=== PATIENT | male | born 2000 | race Caucasian/White ===

== ENCOUNTER 2024-07-25 19:16 | Emergency (ER) | payer OTHER, SELFPAY ==
[2024-07-25 19:48] VITALS: BP 137/85; PULSE 89; RESP 18; TEMP 37.4; O2SAT 99; BMI 47.3
--- NOTE | 2024-07-25 19:55 | XR_ITS ---
Examination: Lumbar spine 3 views TECHNIQUE: AP lateral, lateral and lower lumbar spine 3 views Date and time: July 25, 2024 2103 hours INDICATIONS: Lifting injury to lower back 2 weeks ago, lower back pain. FINDINGS: Adequate alignment lumbar vertebral bodies Mild disc narrowing L5-S1 No lumbar fracture IMPRESSION: Mild disc narrowing L5-S1 If symptoms persist, consider elective MRI lumbar spine without contrast follow-up
--- NOTE | 2024-07-25 19:55 | XR_ITS ---
Examination: Thoracic spine 3 views TECHNIQUE: AP lateral, lateral upper dorsal spine 3 views Date and time: July 25, 2024 2103 hours INDICATIONS: Lifting injury beginning 2 weeks ago to the back, back pain. FINDINGS: Adequate alignment of thoracic vertebral bodies on the lateral view Study is limited secondary to the patient's size No thoracic fracture No significant arthritic change IMPRESSION: No thoracic fracture or significant arthritic change
--- NOTE | 2024-07-25 20:16 | EDNOTE_ITS ---
ED Back Injury Pain RME/HPI General Chief Complaint: Back Pain/Injury Stated Complaint: GEN. BACK AFTER PICKING A PERSON UP AT WORK Time Seen by Provider: 07/25/24 19:49 Source: patient Arrival date/time: 07/25/24 19:16 This is a case of 24 year old male came in [facility] and lower back pain for 2 weeks. Patient states he injury his lower back at work denies numbness weakness tingling sensation no numbness weakness no tingling sensation no incontinence to urine or stool Limitations: no limitations Related Data Previous Rx's ?Medication ?Instructions ?Recorded cyclobenzaprine 10 mg tablet 10 mg PO TID PRN muscle s pasm #10 07/25/24 tabs ibuprofen 800 mg tablet 800 mg PO Q8H PRN pain #20 t abs 07/25/24 Allergies Allergy/AdvReac Type Severity Reaction Status Date / Time No Known Allergies Allergy Verified 07/25/24 19:19 Review of Systems Review of Systems Systems Reviewed: All systems reviewed, normal except as documented Constitutional Constitutional: Reports system reviewed and no additional complaints, except as documented, Reports as per HPI, Denies chills and Denies fever(s) ENT Ears, Nose, Mouth, and Throat: Denies disequilibrium and Denies dizziness Cardiovascular Cardiovascular: Reports system reviewed and no additional complaints, except as documented, Reports as per HPI, Denies chest pain and Denies dyspnea Respiratory Respiratory: Reports system reviewed and no additional complaints, except as documented, Reports as per HPI, Denies chest congestion, Denies cough and Denies dyspnea Gastrointestinal Gastrointestinal: Reports system reviewed and no additional complaints, except as documented, Reports as per HPI and Denies abdominal pain Genitourinary Genitourinary: Reports system reviewed and no additional complaints, except as documented, Reports as per HPI and Denies dysuria Musculoskeletal Musculoskeletal: Reports system reviewed and no additional complaints, except as documented, Reports as per HPI, Denies abnormal gait, Reports back pain and Denies numbness Neurologic Neurologic: Reports system reviewed and no additional complaints, except as documented, Reports as per HPI, Denies abnormal gait, Denies abnormal movements, Denies abnormal speech, Denies disequilibrium, Denies dizziness, Denies localized weakness, Denies lack of coordination, Denies numbness, Denies paresthesias and Denies radicular pain Past Medical History Social History SMOKING STATUS: Current every day smoker ED Exam General Limitations: Present no limitations General appearance: Present alert and in no apparent distress; Absent appears intoxicated, anxious or lethargic Head Head exam: Present atraumatic, normocephalic and normal inspection Eye Eye exam: Present normal appearance, PERRL and EOMI ENT ENT exam: Present normal exam, normal oropharynx and mucous membranes moist Neck Neck exam: Present normal inspection, full ROM and trachea midline Chest Chest inspection: Present normal inspection and symmetric chest wall rise; Absent tenderness Respiratory Respiratory exam: Present normal lung sounds bilaterally; Absent respiratory distress, wheezes, stridor, accessory muscle use or prolonged expiratory phase Cardiovascular Cardiovascular exam: Present regular rate, normal rhythm and normal heart sounds; Absent systolic murmur or diastolic murmur Abdominal Exam Abdominal exam: Present soft and normal bowel sounds; Absent tenderness, guarding, rebound, rigidity, diminished bowel sounds, hyperactive bowel sounds, psoas sign or obturator sign Extremities Exam Extremities exam: Present normal inspection, full ROM and normal capillary refill; Absent tenderness Back Exam Back exam: Present normal inspection, full ROM, tenderness and other (mild tenderness thoracic and lumbar area no crepitation motor 5/5 sensory +2 reflex +2 all extremities); Absent CVA tenderness (R), CVA tenderness (L), muscle spasm, paraspinal tenderness, vertebral tenderness, rashes, sciatic notch tenderness (R), sciatic notch tenderness (L), straight leg raise (R) or straight leg raise (L) Neurological Exam Neurological exam: Present alert, oriented X3, CN II-XII intact, normal gait and reflexes normal; Absent motor sensory deficit Psychiatric Psychiatric exam: Present normal affect and normal mood Skin Skin exam: Present warm, dry, intact and normal color Course Quality Measures none Orders Category Date Time Status XR lumbar spine 2-3V Stat Exams 07/25/24 19:55 Completed XR thoracic spine 3V Stat Exams 07/25/24 19:55 Completed Vital Signs Vital signs: Vital Signs Temperature 99.3 F 07/25/24 19:48 Pulse Rate 89 07/25/24 19:48 Respiratory Rate 18 07/25/24 19:48 Blood Pressure 137/85 H 07/25/24 19:48 Pulse Oximetry (%) 99 07/25/24 19:48 Oxygen Delivery Method Room Air 07/25/24 19:48 Back Pain / Injury MDM Narrative MDM Narrative:: This is a case of 24 year old male came in [facility] and lower back pain for 2 weeks. Patient states he injury his lower back at work denies numbness weakness tingling sensation no numbness weakness no tingling sensation no incontinence to urine or stool Physicial exam showed normal vital signs patient is not tacycardic not tacypneic blood pressure stable afebrile not hypoxic noted mild tenderness thoracc and lumbar area no crepitation no redness no swelling no paraspinal nor vertebral tenderness straight leg exam negative steady gait no cva tenderness no s/sx of cauda equina test showed no fx no subluxation ddd lumbar based on my physical exam patient symtoms suggestive of ddd lumbar strain thoracic and lumbar treatement motrin and flexeril patient was disharged with comforatble conditionwith stable condition and pain fee. Walking stable Patient verbalized no further complain with the proposed management plan including the need to follow up with his/her primary care physician and and any specialist fif applicable. Discussed patient for any urgent condition or worsening sx He she needed to go to Emergency room of call 911 Patient is acknowledge the responsibility to follow up as instructed and to monitor his/her symptoms For any persistnce of the symtoms for more than 3-5 days retrun precaution advised Discussed the result of thetest and was given printed dsicahrge instruction Patient data External records reviewed:: [facility] previous records Clinical information provided by:: patient Social determinants that could affect healthcare access:: none Patient has the following chronic illnesses:: none How is presenting disease/condition affected by chronic disease/condition?: no chronic disease Evaluation data The following diagnostics were reviewed and interpreted by me:: radiology exam(s) Lab and/or radiology exams considered but not ordered:: reviewed Interpretation Summary: normal Medications / Prescriptions Medications or Prescriptions considered but not ordered:: given Medication administrations:: given Consultations Consultation(s) initiated? (list below): No Diagnosis Differential diagnosis back pain/injury: sciatica and thoracic back pain Most likely diagnosis given after review of the tests above:: thoracic strain ad lumbar strain Admission Indicated Admission indicated?: not indicated Explain why admission is indicated or not indicated:: not indicated Admission Request Was there a request for admission?: No Admission Attestation Admission request attestation: not indicated Disposition Plan Disposition Plan: Discharge Discharge Attestation Discharge Attestation: The patient and all family members were given an opportunity to ask questions and understood the discharge instructions. Discharge instructions specifically effects, indications for sooner follow up or return to the emergency department, and the expected course of current diagnosis. Patient condition: Stable Discharge Plan Plan Patient Disposition: HOME (Self Care) Patient condition on transfer: Stable Prescriptions/Referrals Prescriptions/Med Rec: New ibuprofen 800 mg tablet 800 mg PO Q8H PRN (Reason: pain) Qty: 20 0RF cyclobenzaprine 10 mg tablet 10 mg PO TID PRN (Reason: muscle spasm) Qty: 10 0RF Referrals: No Primary/Family,Physician [Referring Provider] - In 1 week Beck Cristobal MD [Physician] - In 1 week (for ddd lumbar possible mri) Problem List Clinical Impression: Strain of thoracic back region, Lumbar strain, DDD (degenerative disc disease), lumbar Patient/Caregiver Discharge Instructions Education Materials: ED Back Sprain/Strain, ED Degenerative Disk Disease Additional Instructions: no lifting pulling pushing more than 5 pounds Print Language: Lithuanian Stand Alone Forms: Natalia Award Info., Work/School Release, Patient Portal Info Letter PA/AIR CONTROL/[employer] Supervising Physician PA/AIR CONTR[employer] OFFICER Supervising Physician: dr escalera
== END 2024-07-25 22:57 | disposition home or self-care (01) ==
PROVIDERS: Emergency Provider Emergency Medicine; PCP Nurse Practitioner Family
DX: S29.012A Strain of muscle and tendon of back wall of thorax, initial encounter (principal); S39.012A Strain of muscle, fascia and tendon of lower back, initial encounter; M51.369 Other intervertebral disc degeneration, lumbar region without mention of lumbar back pain or lower extremity pain; X58.XXXA Exposure to other specified factors, initial encounter; Y99.0 Civilian activity done for income or pay
CPT/HCPCS: 72072; 72100; 99283

== ENCOUNTER 2024-12-28 18:15 | Emergency (ER) | payer MEDICAID, SELFPAY ==
[2024-12-28 18:15] VITALS: BMI 43.0
[2024-12-28 19:09] VITALS: BP 129/83; PULSE 99; RESP 22; TEMP 38.3; O2SAT 97
--- NOTE | 2024-12-28 19:17 | PD.EDRME ---
Rapid Medical Screening Exam [facility] Arrival date/time: 12/28/24 18:15 24M with no significant PMH presents to ED with 1 day of severe IQBAL and light sensitivity. Patient is getting over some illness. Patient has no history of migraines. Patient also has neck pain/stiffness. Chief Complaint: Headache Vital signs: Vital Signs Temperature 101 F H 12/28/24 19:09 Pulse Rate 99 12/28/24 19:09 Respiratory Rate 22 H 12/28/24 19:09 Blood Pressure 129/83 12/28/24 19:09 Pulse Oximetry (%) 97 12/28/24 19:09 Oxygen Delivery Method Room Air 12/28/24 19:09 Exam: Neck stiffness and somewhat reduced ROM. Clinical Impression: URI vs meningitis vs migraine
[2024-12-28 19:50] LABS: Lactate (Lactic Acid) 1.7 mMol/L (0.4-2.0)
[2024-12-28 19:59] LABS: Sed Rate (ESR) 27 mm/hr (0-15)
[2024-12-28 20:00] VITALS: TEMP 38.3
[2024-12-28] MEDS: ACETAMINOPHEN 500 MG TABLET 1000 MG PO (20:00)
[2024-12-28] MEDS: METOCLOPRAMIDE 5 MG TABLET 10 MG PO (20:00)
[2024-12-28 20:01] LABS: Basophils # (Auto) 0.1 Thou/mm3 (0.0-0.2); Basophils % (Auto) 0 % (0-2.5); Eosinophils # (Auto) 0.1 Thou/mm3 (0.0-0.5); Eosinophils % (Auto) 1 % (0-10); Hematocrit 40.5 % (41.0-53.0); Hemoglobin 12.4 g/dL (13.5-16.0); Immature Granulocytes Auto 0.11 Thou/mm3 (0.00-0.00); Lymphocytes # (Auto) 2.5 Thou/mm3 (1.0-4.8); Lymphocytes % (Auto) 20 % (10-50); Mean Corpuscular HGB Conc 30.6 g/dl (31.0-37.0); Mean Corpuscular Hemoglobin 18.8 pg (25.0-35.0); Mean Corpuscular Volume 61 fL (80-100); Monocytes # (Auto) 0.9 Thou/mm3 (0.0-0.8); Monocytes % (Auto) 7 % (0-12); Neutrophils # (Auto) 8.9 Thou/mm3 (1.8-7.7); Neutrophils % (Auto) 71 % (37-80); Nucleated Red Blood Cell # 0.00 Thou/mm3 (0.00-0.00); Nucleated Red Blood Cell % 0 /100 WBC (0); Platelet Count 381 Thou/mm3 (140-440); RDW Standard Deviation 34.9 fL (35.1-43.9); Red Blood Count 6.60 Miln/mm3 (4.50-5.90); White Blood Count 12.4 Thou/mm3 (3.8-10.6)
[2024-12-28] MEDS: SUMAtriptan INJ 6 MG/0.5 ML VIAL SC (20:02)
[2024-12-28 20:19] LABS: Alanine Aminotransferase 39 U/L (10-49); Albumin, Serum 4.7 gm/dL (3.5-5.0); Albumin/Globulin Ratio 1.9 (1.2-2.2); Alkaline Phosphatase 85 U/L (46-116); Anion Gap 11 (7-16); Aspartate Amino Transferase 30 U/L (0-34); BUN/Creatinine Ratio 12 Ratio (12-20); Bilirubin,Total 0.2 mg/dL (0.3-1.2); Blood Urea Nitrogen 11 mg/dL (9-23); C-Reactive Protein 0.8 mg/dL (0.0-0.9); Calcium 9.1 mg/dL (8.3-10.6); Calcium (Corrected) 9.1 mg/dL (8.5-10.1); Carbon Dioxide 26.7 mMol/L (20.0-31.0); Chloride 103 mMol/L (98-107); Creatinine (Component) 0.9 mg/dL (0.6-1.3); Estimated Creatinine Clearance 178.9 mL/min (>60); Globulin 2.5 gm/dL (2.3-3.5); Glucose 106 mg/dL (74-106); Osmolality,Calculated 280 (275-295); Potassium 4.1 mMol/L (3.4-5.1); Procalcitonin 0.09 ng/ml (0.0-0.49); Sodium 141 mMol/L (136-145); Total Protein 7.2 gm/dL (5.7-8.2); eGFR > 60 See Note
[2024-12-28 20:21] LABS: Influenza A Ag Negative; Influenza B Ag Negative; Strep A Rapid Negative (Negative)
[2024-12-28 22:36] VITALS: BP 119/72; PULSE 99; RESP 20; TEMP 38.2; O2SAT 96
--- NOTE | 2024-12-28 23:13 | PD.EDHA ---
ED Headache RME/HPI General Chief Complaint: Headache Stated Complaint: migraine Arrival date/time: 12/28/24 18:15 RME / HPI RME / HPI Narrative: 12/28/24 18:15 24M with no significant PMH presents to ED with 1 day of severe IQBAL and light sensitivity. Patient is getting over some illness. Patient has no history of migraines. Patient also has neck pain/stiffness. --------- Dr. Walter?s Main ED Evaluation: 24yo male with no significant past medical history presents to the ED for a chief complaint of a headache x 1 day. Patient states his headache is diffuse and radiates down to his neck. Patient reports associated photophobia. Patient notes he's been sick with a sore throat, cough, and runny nose for the last 3 weeks. Patient denies any other associated symptoms. Denies any history of similar symptoms. NKA. Related Data Previous Rx's ?Medication ?Instructions ?Recorded cyclobenzaprine 10 mg tablet 10 mg PO TID PRN muscle spasm #10 07/25/24 tabs ibuprofen 800 mg tablet 800 mg PO Q8H PRN pain #20 tabs 07/25/24 Allergies Allergy/AdvReac Type Severity Reaction Status Date / Time No Known Allergies Allergy Verified 07/25/24 19:19 Review of Systems Review of Systems Systems Reviewed: All systems reviewed, normal except as documented Past Medical History Social History SMOKING STATUS: Current some day smoker ED Exam Narrative Physical exam: Generally patient is alert obese in mild distress secondary to headache pain, head is normocephalic atraumatic, eyes pupils equal round react to light, oropharynx is moist and clear, neck shows no obvious nuchal rigidity, neurologic exam [place] Coma Scale 15, abdomen is obese soft nontender Course Quality Measures none Orders Category Date Time Status Bedside COVID-19 Antigen Test NOW Care 12/28/24 19:16 Active Blood Culture (Lab) Stat Lab 12/28/24 19:38 Received CBC Stat Lab 12/28/24 19:38 Completed CMP [Comprehensive Metabolic Panel] Stat Lab 12/28/24 19:38 Completed CRP [C-Reactive Protein] Stat Lab 12/28/24 19:38 Completed ESR [Sed Rate (ESR)] Stat Lab 12/28/24 19:38 Completed Influenza A & B Rapid Panel Stat Lab 12/28/24 19:31 Completed Lactate (Lactic Acid) Stat Lab 12/28/24 19:38 Completed Path Review Blood Smear Stat Lab 12/28/24 19:38 Completed Procalcitonin Stat Lab 12/28/24 19:38 Completed Strep A Rapid Stat Lab 12/28/24 19:31 Completed 1,000 mg IM w/Lido* 1% Med 12/29/24 01:07 Ordered cefTRIAXone [Rocephin] 1,000 mg Lidocaine 1% 20 ml [Xylocaine 1% 20 ML] 2.1 ml IM X1 Acetaminophen Tab [Tylenol ES Tab] Med 12/28/24 19:16 Discontinued 1,000 mg PO X1 ONE Lidocaine 1% 20 ml [Xylocaine 1% 20 ML] Med 12/29/24 00:51 Discontinued 20 ml .ROUTE .STK-MED ONE Lidocaine 1% 20 ml [Xylocaine 1% 20 ML] Med 12/28/24 23:28 Discontinued 20 ml INFL X1 ONE Metoclopramide [Reglan] Med 12/28/24 19:16 Discontinued 10 mg PO X1 ONE SUMAtriptan INJ [Imitrex Inj] Med 12/28/24 19:16 Discontinued 6 mg SC X1 ONE Vital Signs Vital signs: Vital Signs Temperature 101 F H 12/28/24 19:09 Pulse Rate 99 12/28/24 19:09 Respiratory Rate 22 H 12/28/24 19:09 Blood Pressure 129/83 12/28/24 19:09 Pulse Oximetry (%) 97 12/28/24 19:09 Oxygen Delivery Method Room Air 12/28/24 19:09 Headache MDM Narrative MDM Narrative:: Scribe Attestation: 12/28/24 Keely Egan am scribing for and in the presence of Dr. Walter. COVID was negative, flu was negative,'s rapid strep screen was negative. There is no leukocytosis. Patient has the possibility of meningitis. Procedure note: This patient is large and morbidly obese weighing approximately 300 pounds. After consent was obtained a lumbar puncture was attempted with the patient sitting in an upright position as well as lateral recumbent. The L3-L4 interspace was anesthetized with 1% lidocaine without epinephrine multiple times using approximately 30 cc of 1% lidocaine without epinephrine. The skin prior to this was cleansed using Betadine. Using an 18-gauge 3-1/2 inch spinal needle that was hubbed just to touch bone. I could not enter the subarachnoid space after multiple attempts. Patient will be given Rocephin 1 g IM. He is to return to the emergency room each of the next 2 days for recheck and Rocephin 1 g IM injection. Patient data External records reviewed:: [facility] previous records (Per chart review, patient has no relevant previous ED visits.) Clinical information provided by:: patient Social determinants that could affect healthcare access:: none Patient has the following chronic illnesses:: none How is presenting disease/condition affected by chronic disease/condition?: no chronic disease Evaluation data The following diagnostics were reviewed and interpreted by me:: lab results Lab and/or radiology exams considered but not ordered:: none Interpretation Summary: See MDM Medications / Prescriptions Medications or Prescriptions considered but not ordered:: none Medication administrations:: Medication Administration History Discontinued Medications Acetaminophen (Acetaminophen 500 Mg Tablet) 1,000 mg PO X1 ONE Stop: 12/28/24 19:17 Last Admin: 12/28/24 20:00 Dose: 1,000 mg Documented By: Lidocaine HCl (Lidocaine Hcl 1% 20 Ml Vial) 20 ml INFL X1 ONE Stop: 12/28/24 23:29 Lidocaine HCl (Lidocaine Hcl 1% 20 Ml Vial) Confirm Administered Dose 20 ml .ROUTE .STK-MED ONE Stop: 12/29/24 00:52 Metoclopramide HCl (Metoclopramide 5 Mg Tablet) 10 mg PO X1 ONE Stop: 12/28/24 19:17 Last Admin: 12/28/24 20:00 Dose: 10 mg Documented By: Sumatriptan Succinate (Sumatriptan Inj 6 Mg/0.5 Ml Vial) 6 mg SC X1 ONE Stop: 12/28/24 19:17 Last Admin: 12/28/24 20:02 Dose: 6 mg Documented By: see above Consultations Consultation(s) initiated? (list below): No Diagnosis Differential diagnosis headache: migraine, tension headache, headache and meningitis Most likely diagnosis given after review of the tests above:: None Admission Indicated Admission indicated?: not indicated Admission Request Was there a request for admission?: No Disposition Plan Disposition Plan: Discharge Discharge Attestation Discharge Attestation: The patient and all family members were given an opportunity to ask questions and understood the discharge instructions. Discharge instructions specifically effects, indications for sooner follow up or return to the emergency department, and the expected course of current diagnosis. Patient condition: Stable Discharge Plan Plan Patient Disposition: HOME (Self Care) Prescriptions/Referrals Prescriptions/Med Rec: No Action ibuprofen 800 mg tablet 800 mg PO Q8H PRN (Reason: pain) Qty: 20 0RF cyclobenzaprine 10 mg tablet 10 mg PO TID PRN (Reason: muscle spasm) Qty: 10 0RF Referrals: Warren Perry [Primary Care Provider] - In 1 week Problem List Clinical Impression: Headache Patient/Caregiver Discharge Instructions Education Materials: Self-Care for Headaches Additional Instructions: Lumbar puncture was attempted but cerebrospinal could not be obtained. You were to return to the emergency room each of the next 2 days, Wednesday and Wednesday, to receive Rocephin 1 g IM and for recheck. Print Language: Panamanian Stand Alone Forms: Natalia Award Info., Patient Portal Info Letter
[2024-12-28 23:19] LABS: Path Review Blood Smear Sent to Pathologist
[2024-12-29] MEDS: LIDOCAINE HCL 1% 20 ML VIAL INFL (00:36)
[2024-12-29] MEDS: cefTRIAXone 1,000 MG, LIDOCAINE 1% 20 ML 2.1 ML IM (01:45)
[2024-12-29] MEDS: LIDOCAINE HCL 1% 20 ML VIAL IM (01:46)
[2024-12-29 01:51] VITALS: BP 130/68; RESP 20; O2SAT 98
== END 2024-12-29 01:53 | disposition home or self-care (01) ==
PROVIDERS: Physician Assistant; Emergency Provider Emergency Medicine; PCP Family Medicine
DX: R51.9 Headache, unspecified (principal)
CPT/HCPCS: 36415; 80053; 83605; 84145; 85025; 85652; 86140; 87040; 87502; 87651; 87811; 96372; 99283; J0696; J3030; J3490; A9270

== ENCOUNTER 2024-12-30 11:22 | Emergency (ER) | payer MEDICAID, SELFPAY ==
[2024-12-30 11:43] VITALS: BP 140/95; PULSE 77; RESP 16; TEMP 37.1; O2SAT 96; BMI 43.0
--- NOTE | 2024-12-30 12:04 | EDNOTE_ITS ---
<Statement entered by Viviane Hamilton MD - 01/07/25 14:15> As co-signing physician, I was present and available for consult prn. I concur with the plan and care as documented by the midlevel provider. ED General RME/HPI General Chief complaint: General Adult/Misc Complain Stated complaint: NEEDS 2ND DOSE ABX Time Seen by Provider: 12/30/24 11:27 Arrival date/time: 12/30/24 11:22 CC: Headache HPI patient presents to the ER 2 days after being seen in the emergency room for headache at which time the patient had a failed lumbar puncture recommendation from that discharge that the patient received Rocephin for the next 2 days. Patient states he continues to have a mild headache denies fever chills shortness of breath difficulty breathing neck stiffness nausea vomiting or diarrhea. Patient describes the headache as all over , but has significantly decreased in intensity since the last visit. Patient appears nontoxic not in any acute distress observed ambulating and responding to all questions appropriately. Related Data Previous Rx's ?Medication ?Instructions ?Recorded cyclobenzaprine 10 mg tablet 10 mg PO TID PRN muscle s pasm #10 07/25/24 tabs ibuprofen 800 mg tablet 800 mg PO Q8H PRN pain #20 t abs 07/25/24 acyclovir 400 mg tablet 400 mg PO QID #20 tabs 12/30 Allergies Allergy/AdvReac Type Severity Reaction Status Date / Time No Known Allergies Allergy Verified 07/25/24 19:19 Review of Systems Review of Systems Narrative Review of Systems: GEN: No fever, no chills, no weight loss EYES: No discharge, no visual changes, no pain HEENT: No ear pain, no congestion, no sore throat PULM: No shortness of breath, no cough, no congestion CV: No chest pain, no dyspnea on exertion, no palpitations GI: No nausea, no vomiting, no diarrhea, no pain, no constipation : No frequency, no urgency, no dysuria MUSC/SKEL: No joint pain, no back pain SKIN: No rash PSYCH: No hallucinations, no depression HEME/LYMPH: No easy bleeding or bruising tendencies NEURO: No weakness, + headache Past Medical History Past Medical History CARDIAC: Negative Congestive Heart Failure RESPIRATORY: Positive Asthma; Negative Chronic Obstructive Pulmonary Disease (COPD) GENITOURINARY: Negative Renal Disease ENDOCRINE: Negative Diabetes Mellitus Type 1 or Diabetes Mellitus Type 2 Social History SMOKING STATUS: Current every day smoker ED Exam Narrative Physical exam: [General: Morbidly obese not in any acute distress Head normocephalic HEENT: Eyes pupils are PERRLA EOMs are intact mouth pink moist membranes uvula is midline swallow symmetrical phonation is normal. Nose, no rhinorrhea, no epistaxis ears no otorrhea. Within acceptable limits Neck is supple nontender Chest equal chest rise nontender to palpation Respiratory: Clear to auscultation no wheezes crackles or rubs CV: Rate rhythm is regular no murmurs rubs or clicks Abdomen is soft nontender no masses positive bowel sounds all 4 quadrants Back: No CVA tenderness no spinous process tenderness from cervical spine thoracic and lumbar spine Skin: Intact no petechiae rash induration ulceration or crepitus Extremities: Moving all extremity against resistance cap refill less than 2 seconds neurosensory intact Neuro: Awake alert oriented x3 Glascow coma 15 no focal deficits] Course Quality Measures none Orders Category Date Time Status Saline [Insert IV] NOW Care 12/30/24 12:03 Completed Acyclovir Inj [Zovirax Inj] 980 mg Med 12/30/24 12:30 Discontinued Sodium Chloride 0.9% 250 ml [Ns] 250 ml IV X1 cefTRIAXone [Rocephin] 2 gm Med 12/30/24 12:03 Discontinued SODIUM CHLORIDE 0.9% (Popper) [Ns 0.9% (P)] 50 ml IV X1 Vital Signs Vital signs: Vital Signs Temperature 98.8 F 12/30/24 11:43 Pulse Rate 77 12/30/24 11:43 Respiratory Rate 16 12/30/24 11:43 Blood Pressure 140/95 H 12/30/24 11:43 Pulse Oximetry (%) 96 12/30/24 11:43 Oxygen Delivery Method Room Air 12/30/24 11:43 Discharge Plan Plan Patient Disposition: HOME (Self Care) Patient condition on transfer: Stable Prescriptions/Referrals Prescriptions/Med Rec: New acyclovir 400 mg tablet 400 mg PO QID Qty: 20 0RF No Action ibuprofen 800 mg tablet 800 mg PO Q8H PRN (Reason: pain) Qty: 20 0RF cyclobenzaprine 10 mg tablet 10 mg PO TID PRN (Reason: muscle spasm) Qty: 10 0RF Problem List Clinical Impression: Headache Patient/Caregiver Discharge Instructions Other Activity Instructions:: Return for the second dose of Rocephin. Start the antiviral medication as prescribed. If there is worsening of symptoms return immediately to the emergency room. Education Materials: Self-Care for Headaches Additional Instructions: Return in 2 days for repeat antibiotics. If there is worsening of symptoms in spite of the medications return the emergency room for reevaluation. Print Language: Sami Stand Alone Forms: Natalia Award Info., Work/School Release, Patient Portal Info Letter ALEXANDER/GANGA Supervising Physician ALEXANDER/GANGA Supervising Physician: Juan Escobar ENP [facility] Medication Administration(s) Medication Administration History Discontinued Medications Ceftriaxone Sodium 2 gm/ (Sodium Chloride) 50 mls @ 100 mls/hr IV X1 ONE Stop: 12/30/24 12:32 Last Infusion: 12/30/24 13:20 Dose: Infused Documented By: Admin: 12/30/24 12:36 Dose: 100 mls/hr Documented By: ED Acyclovir Sodium 980 mg/ (Sodium Chloride) 269.6 mls @ 269.6 mls/hr IV X1 ONE Stop: 12/30/24 13:29 Last Admin: 12/30/24 13:29 Dose: 269.6 mls/hr Documented By: JT
--- NOTE | 2024-12-30 12:24 | PC.NURSE ---
Pt. here from home to room 17, pt. states he was seen here yesterday, pt. states he had a IQBAL, pt. states today he has a mild IQBAL 06/15. Pt. lips are dry and cracked. Pt. states he vapes, pt. denies any nausea or vomiting. Pt. states his Mom is a RN at [employer] [employer] and pt. states his Mom told him to refuse a spinal tap if one is ordered. Juan blanchard.
[2024-12-30] MEDS: cefTRIAXone 2 GM in SODIUM CHLORIDE 0.9% (Popper) 50 ML IV (12:36)
[2024-12-30 14:03] VITALS: BP 118/56; PULSE 73; RESP 18; TEMP 36.9; O2SAT 96
[2024-12-30 15:05] VITALS: BP 121/74; PULSE 80; RESP 18; TEMP 36.8; O2SAT 100
[2024-12-30 15:45] VITALS: BP 121/74; PULSE 80; RESP 18; TEMP 36.8; O2SAT 100
== END 2024-12-30 15:45 | disposition home or self-care (01) ==
LOC: SERX 13:52
PROVIDERS: Emergency Provider Emergency Medicine; PCP Family Medicine
DX: R51.9 Headache, unspecified (principal)
CPT/HCPCS: 96365; 99282; J0133; J0696; J7050

== ENCOUNTER 2025-01-02 11:15 | Emergency (ER) | payer BC, MEDICAID, SELFPAY ==
[2025-01-02 11:50] VITALS: BP 131/76; PULSE 81; RESP 16; TEMP 37; O2SAT 97; BMI 43.0
[2025-01-02] MEDS: cefTRIAXone 1,000 MG, LIDOCAINE 1% 20 ML 2.1 ML IM (12:08)
--- NOTE | 2025-01-02 12:11 | EDNOTE_ITS ---
ED General RME/HPI General Chief complaint: General Adult/Misc Complain Stated complaint: 2ND DOSE TO ANTIBIOTICS Time Seen by Provider: 01/02/25 11:19 Source: patient Arrival date/time: 01/02/25 11:15 24-year-old male with no known medical history presents to the emergency room for second dose of antibiotics. Patient was seen here a couple of days ago to rule out meningitis. The patient spinal taps were unsuccessful and the patient was given IV antibiotics and discharged with oral antibiotics. Patient was educated to return for reevaluation and for repeat shot of Rocephin. Mode of arrival: ambulatory Limitations: no limitations Related Data Previous Rx's ?Medication ?Instructions ?Recorded cyclobenzaprine 10 mg tablet 10 mg PO TID PRN muscle s pasm #10 07/25/24 tabs ibuprofen 800 mg tablet 800 mg PO Q8H PRN pain #20 t abs 07/25/24 acyclovir 400 mg tablet 400 mg PO QID #20 tabs 12/30 Allergies Allergy/AdvReac Type Severity Reaction Status Date / Time No Known Allergies Allergy Verified 01/02/25 11:16 Review of Systems Review of Systems Systems Reviewed: All systems reviewed, normal except as documented Constitutional Constitutional: Reports system reviewed and no additional complaints, except as documented, Denies fatigue, Denies fever(s), Denies headache(s) and Denies weakness Eyes Eyes: Reports system reviewed and no additional complaints, except as documented, Denies blurry vision and Denies change in vision ENT Ears, Nose, Mouth, and Throat: Reports system reviewed and no additional complaints, except as documented, Denies otalgia, Denies headache(s), Denies nasal congestion, Denies throat swelling and Denies vertigo Cardiovascular Cardiovascular: Reports system reviewed and no additional complaints, except as documented, Denies chest pain, Denies dyspnea and Denies dyspnea on exertion Respiratory Respiratory: Reports system reviewed and no additional complaints, except as documented, Denies chest congestion, Denies cough, Denies dyspnea, Denies dyspnea on exertion and Denies wheezing Gastrointestinal Gastrointestinal: Reports system reviewed and no additional complaints, except as documented, Denies abdominal pain, Denies cramping, Denies nausea and Denies vomiting Genitourinary Genitourinary: Reports system reviewed and no additional complaints, except as documented, Denies dysuria and Denies hematuria Musculoskeletal Musculoskeletal: Reports system reviewed and no additional complaints, except as documented and Denies back pain Integumentary/Breasts Skin/Breast: Reports system reviewed and no additional complaints, except as documented and Denies wounds Neurologic Neurologic: Reports system reviewed and no additional complaints, except as documented, Denies confusion, Denies headache(s), Denies lack of coordination, Denies vertigo and Denies weakness Psychiatric Psychiatric: Reports system reviewed and no additional complaints, except as documented, Denies anxiety, Denies confusion, Denies depression, Denies paranoia, Denies suicidal ideation and Denies tactile hallucinations Endocrine Endocrine: Reports system reviewed and no additional complaints, except as documented and Denies fatigue Hematologic/Lymphatic Hematologic/Lymphatic: Reports system reviewed and no additional complaints, except as documented and Denies lymphadenopathy Allergic/Immunologic Allergic/Immunologic: Reports system reviewed and no additional complaints, except as documented, Denies throat swelling, Denies urticaria and Denies wheezing Past Medical History Past Medical History CARDIAC: Negative Congestive Heart Failure RESPIRATORY: Positive Asthma; Negative Chronic Obstructive Pulmonary Disease (COPD) GENITOURINARY: Negative Renal Disease ENDOCRINE: Negative Diabetes Mellitus Type 1 or Diabetes Mellitus Type 2 Social History SMOKING STATUS: Current every day smoker ED Exam General Limitations: Present no limitations General appearance: Present alert and in no apparent distress Head Head exam: Present atraumatic Eye Eye exam: Present normal appearance, PERRL and EOMI ENT ENT exam: Present normal exam, normal oropharynx and mucous membranes moist Neck Neck exam: Present normal inspection, full ROM and trachea midline Chest Chest inspection: Present normal inspection and symmetric chest wall rise Respiratory Respiratory exam: Present normal lung sounds bilaterally Cardiovascular Cardiovascular exam: Present regular rate, normal rhythm and normal heart sounds Abdominal Exam Abdominal exam: Present soft and normal bowel sounds Extremities Exam Extremities exam: Present normal inspection and full ROM Back Exam Back exam: Present normal inspection and full ROM Neurological Exam Neurological exam: Present alert, oriented X3 and CN II-XII intact Psychiatric Psychiatric exam: Present normal affect and normal mood Skin Skin exam: Present warm, dry, intact and normal color Course Quality Measures none Orders Category Date Time Status cefTRIAXone [Rocephin] 1,000 mg Med 01/02/25 11:51 Discontinued Lidocaine 1% 20 ml [Xylocaine 1% 20 ML] 2.1 ml IM X1 Vital Signs Vital signs: Vital Signs Temperature 98.6 F 01/02/25 11:50 Pulse Rate 81 01/02/25 11:50 Respiratory Rate 16 01/02/25 11:50 Blood Pressure 131/76 H 01/02/25 11:50 Pulse Oximetry (%) 97 01/02/25 11:50 Oxygen Delivery Method Room Air 01/02/25 11:50 Discharge Plan Plan Patient Disposition: HOME (Self Care) Discharge Disposition comment: Stable Prescriptions/Referrals Prescriptions/Med Rec: No Action ibuprofen 800 mg tablet 800 mg PO Q8H PRN (Reason: pain) Qty: 20 0RF cyclobenzaprine 10 mg tablet 10 mg PO TID PRN (Reason: muscle spasm) Qty: 10 0RF acyclovir 400 mg tablet 400 mg PO QID Qty: 20 0RF Problem List Clinical Impression: Headache Patient/Caregiver Discharge Instructions Education Materials: Self-Care for Headaches Additional Instructions: Please follow-up with your primary care provider next 24 to 48 hours He received your second dose of Rocephin For any evidence of worsening signs or symptoms including fever neck pain vomiting or worsening headaches return to the emergency room immediately Print Language: [place] Stand Alone Forms: [employer] Info., Work/School Release, Patient Portal Info Letter PA/[employer]USB[employer] TEACHER Supervising Physician PA/POUL[employer] HUSBANDRY TEACHER Supervising Physician: Dr. Polanco MDM Narrative MDM hospital course (for use when minimal MDM required): 24-year-old male with no known medical history presents to the emergency room for second dose of antibiotics. Patient was seen here a couple of days ago to rule out meningitis. The patient spinal taps were unsuccessful and the patient was given IV antibiotics and discharged with oral antibiotics. Patient was educated to return for reevaluation and for repeat shot of Rocephin. Patient is hemodynamically stable and in no apparent distress. Patient is afebrile not tachycardic not tachypneic Patient states all his symptoms have significantly improved since his visit to the emergency room. Patient denies any neck tenderness, vomiting, nausea, fevers or, headaches. Patient states he is here for his repeat dose of Rocephin. The shot of Rocephin was given with no complications Patient was discharged and educated to follow-up with primary care provider in the next 24 to 48 hours and return to the emergency room for any evidence of worsening signs or symptoms Clinical Information Provided by: patient Medical Records reviewed None Meds/Rx considered, not ordered None Labs/Rad/Tests considered, not ordered None Chronic Illness/Social Conditions which may negatively complicate care or outcome(s)-explain: None or not applicable EKG EKG not done Labs Labs: none Imaging Imaging interpretation: none Medication Administration(s) none Medication Administration History Discontinued Medications Ceftriaxone Sodium 1,000 mg/ (Lidocaine HCl 2.1 ml) 0 mg IM X1 ONE Stop: 01/02/25 11:52 Last Admin: 01/02/25 12:08 Dose: 2.1 mg Documented By: GISSELL Diagnosis Differential Diagnosis ED Complaint MDM: Meningitis/headache/ Diagnoses ruled out and/or further discussions: Meningitis
== END 2025-01-02 12:19 | disposition home or self-care (01) ==
PROVIDERS: Emergency Provider Family Medicine
DX: R51.9 Headache, unspecified (principal)
CPT/HCPCS: 96372; 99282; J0696; J3490